=== PATIENT | female | born 1965 | race African-American/Black ===

== ENCOUNTER 2021-07-30 22:22 | Emergency (ER) | payer MEDICAID ==
[~2021-07-30] VITALS: Ht 167.6 cm; Wt 68.0 kg
[2021-07-30] MEDS ORDERED: NALOXONE HCL 0.4 MG/ML 1ML VIAL IV PRN (22:45)
[2021-07-31 00:19] LABS: HEMOGLOBIN. 12.9 g/dL (12.0-16.0); MEAN CORPUSCULAR HEMOGLOBIN 23.4 pg (28.0-32.0); MEAN CORPUSCULAR VOLUME 75.9 fL (81.0-99.0); MEAN PLATELET VOLUME 9.7 fl (7.4-10.4); PLATELET 156 x1000/uL (130-400); RED BLOOD CELL COUNT 5.53 mill/uL (4.2-5.4); RED CELL DISTRIBUTION WIDTH 15.3 % (11.6-14.6)
[2021-07-31 00:22] LABS: CHLORIDE 112 mEq/L (98-107)
[2021-07-31] MEDS ORDERED: HALOPERIDOL LACTATE 5MG/ML VIAL IM NR (00:30)
[2021-07-31 00:35] LABS: ETHANOL BLOOD 388 mg/dL
[2021-07-31 00:49] LABS: CLARITY URINE CLEAR (CLEAR); COLOR URINE YELLOW (YELLOW); KETONES URINE NEGATIVE (NEGATIVE); LEUKOCYTE ESTERASE URINE NEGATIVE (NEGATIVE); NITRITE URINE NEGATIVE (NEGATIVE); OCCULT BLOOD URINE NEGATIVE (NEGATIVE); PH URINE 5.5 (4.5-8.0); PROTEIN URINE NEGATIVE (NEGATIVE); SPECIFIC GRAVITY URINE 1.004 (1.005-1.030); UROBILINOGEN URINE 0.2 E.U./dL (0.2-1.0)
[2021-07-31 01:01] LABS: *AMPHETAMINES SCREEN URINE NEGATIVE (NEGATIVE); *BARBITURATES SCREEN URINE NEGATIVE (NEGATIVE); *BENZODIAZEPINES SCREEN URINE NEGATIVE (NEGATIVE); *COCAINE SCREEN URINE NEGATIVE (NEGATIVE); METHADONE URINE SCREEN NEGATIVE (NEGATIVE)
[2021-07-31 01:02] LABS: CANNABINOID URINE SCREEN NEGATIVE (NEGATIVE); OPIATES URINE SCREEN NEGATIVE (NEGATIVE); PHENCYCLIDINE URINE SCREEN NEGATIVE (NEGATIVE)
[2021-07-31 02:03] LABS: ATYPICAL LYMPHOCYTES 1; PLATELET ESTIMATE NORMAL
[2021-07-31] MEDS ORDERED: HALOPERIDOL LACTATE 5MG/ML VIAL IM SCH (06:50)
[2021-07-31 08:11] VITALS: BP 151/94
== END 2021-07-31 09:16 | disposition home or self-care (01) ==
LOC: ER 22:22 → EDBD 22:22 → ER 07-31 09:16
DX: F10.129 Alcohol abuse with intoxication, unspecified (principal); Y90.8 Blood alcohol level of 240 mg/100 ml or more; R00.0 Tachycardia, unspecified; R03.0 Elevated blood-pressure reading, without diagnosis of hypertension; R45.1 Restlessness and agitation; Z78.1 Physical restraint status
CPT/HCPCS: 36415; 70450; 71045; 80053; 80305; 80307; 80320; 80329; 81003; 82140; 82962; 84443; 85025; 96372; 99285; J1630; Z7610; G0480

== ENCOUNTER 2025-01-24 07:10 | Emergency (ER) | payer MEDICAID, OTHER ==
[~2025-01-24] VITALS: Ht 170.2 cm; Wt 65.8 kg
[2025-01-24 07:21] VITALS: O2SAT 100
[2025-01-24 09:31] LABS: HEMATOCRIT. 32.8 % (36.0-48.0); HEMOGLOBIN. 10.5 g/dL (12.0-16.0); MEAN CORPUSCULAR HEMOGLOBIN 21.9 pg (28.0-32.0); MEAN CORPUSCULAR HGB CONC 32.1 g/dL (31.0-37.0); MEAN CORPUSCULAR VOLUME 68.2 fL (81.0-99.0); MEAN PLATELET VOLUME 8.3 fl (7.4-10.4); PLATELET 273 x1000/uL (130-400); RED BLOOD CELL COUNT 4.81 mill/uL (4.2-5.4); RED CELL DISTRIBUTION WIDTH 15.1 % (11.6-14.6); WHITE BLOOD COUNT 6.3 x1000/uL (4.5-11.0)
[2025-01-24] MEDS: ONDANSETRON 4MG ODT PO ONE (09:31)
[2025-01-24] MEDS: ACETAMINOPHEN 325MG TABLET PO ONE (09:32)
[2025-01-24 09:37] LABS: DIFFERENTIAL COMMENT 1
[2025-01-24 09:40] LABS: CHLORIDE 96 mEq/L (98-107); POTASSIUM 3.6 mEq/L (3.5-5.1); SODIUM 127 mEq/L (136-145)
[2025-01-24 09:41] LABS: CARBON DIOXIDE 24 mEq/L (21-32)
[2025-01-24 09:46] LABS: CREATININE 0.8 mg/dL (0.6-1.0); GLUCOSE 107 mg/dL (70-105); UREA NITROGEN BLOOD 8 mg/dL (9-23)
[2025-01-24 10:16] LABS: CLARITY URINE CLEAR (CLEAR); COLOR URINE YELLOW (YELLOW); GLUCOSE URINE NEGATIVE (NEGATIVE); KETONES URINE NEGATIVE (NEGATIVE); LEUKOCYTE ESTERASE URINE NEGATIVE (NEGATIVE); NITRITE URINE NEGATIVE (NEGATIVE); OCCULT BLOOD URINE NEGATIVE (NEGATIVE); PROTEIN URINE NEGATIVE (NEGATIVE); SPECIFIC GRAVITY URINE 1.008 (1.005-1.030); UROBILINOGEN URINE 0.2 E.U./dL (0.2-1.0)
[2025-01-24 10:34] LABS: ALANINE AMINOTRANSFERASE 30 IU/L (10-49); ASPARTATE AMINOTRANSFERASE 26 IU/L (<34); BILIRUBIN DIRECT < 0.1 mg/dL (<=3.0); BILIRUBIN TOTAL 0.3 mg/dL (0.1-1.0); PROTEIN TOTAL 7.6 g/dL (6.0-8.3)
[2025-01-24 10:49] LABS: PLATELET ESTIMATE NORMAL
[2025-01-24 10:50] LABS: HYPOCHROMASIA 1+
[2025-01-24] MEDS ORDERED: CIPR-263 MT (11:26)
[2025-01-24] MEDS ORDERED: ONDA-239 PO (11:26)
[2025-01-24] MEDS ORDERED: METR-167 MT (11:26)
[2025-01-24 11:39] VITALS: BP 121/78; PULSE 84; RESP 13; TEMP 36.6; O2SAT 100
== END 2025-01-24 11:40 | disposition home or self-care (01) ==
LOC: ER 07:10
DX: K52.9 Noninfective gastroenteritis and colitis, unspecified (principal); E87.1 Hypo-osmolality and hyponatremia
CPT/HCPCS: 99284; 74176; 80076; 80048; 81003; 83690; 85025; 36415; Q0162